=== PATIENT | female | born 1955 ===

== ENCOUNTER 2017-01-16 08:03 | Emergency (ER) | payer OTHER ==
[2017-01-16 08:07] VITALS: RESP 20; TEMP 98.5; O2SAT 96
--- NOTE | 2017-01-16 09:52 | CT ---
PROCEDURE: CT HEAD WITHOUT CONTRAST. HISTORY: headache, hemangioma to R occipital scalp COMPARISON: None available. TECHNIQUE: Axial computed tomography images were obtained through the head/brain without intravenous contrast. Radiation dose: Total exam DLP = 711 mGy-cm. This CT exam was performed using one or more of the following dose reduction techniques: Automated exposure control, adjustment of the mA and/or kV according to patient size, and/or use of iterative reconstruction technique. FINDINGS: HEMORRHAGE: No intracranial hemorrhage. BRAIN: No mass effect or edema. Scattered mild focal lucencies in the subcortical and periventricular white matter suggestive for chronic microvascular ischemic change. Punctate left basal ganglia calcification. VENTRICLES: Unremarkable. No hydrocephalus. CALVARIUM: Unremarkable. PARANASAL SINUSES: Unremarkable as visualized. No significant inflammatory changes. MASTOID AIR CELLS: Unremarkable as visualized. No inflammatory changes. OTHER FINDINGS: Focal soft tissue thickening projecting over the right posterior parietal subcutaneous soft tissues. IMPRESSION: No acute intracranial abnormality. Punctate left basal ganglia calcification. Mild chronic microvascular ischemic changes. Focal soft tissue thickening projecting over the right posterior parietal subcutaneous soft tissues. If headache persists, consider further evaluation with MRI.
--- NOTE | 2017-01-16 09:56 | C.PDOC ---
History Of Present Illness Patient is a 61 y/o female that presents to the ED for evaluation of throbbing right occipital scalp pain since yesterday morning. Patient states she has a bruise directly over the site of her pain. Daughter states that the bruise has increased in size from yesterday to today with persistent pain. Pt denies being on any blood thinner, and denies any family history of brain aneurysm. Patient is unaware of any lesion to the area. Otherwise, denies any trauma, injury, fever, chills, nausea, vomiting, or any other associated symptoms at this time. Time Seen by Provider: 01/16/17 08:12 Chief Complaint (Nursing): Headache History Per: Patient History/Exam Limitations: no limitations Onset/Duration Of Symptoms: Days (1) Current Symptoms Are (Timing): Still Present Quality: "Pain" Preceeding Symptoms: None. denies: Visual Disturbances, Known Migraine Symptoms Associated Symptoms: denies: Photophobia, Blurred Vision, Nausea, Vomiting, Extremity Weakness Recent travel outside of the [place]: No Additional History Per: Patient, Family (daughter) Past Medical History Reviewed: Historical Data, Nursing Documentation, Vital Signs Vital Signs: Last Vital Signs Temp 98.5 F 01/16/17 08:04 Pulse 64 01/16/17 09:58 Resp 20 01/16/17 09:58 BP 116/77 01/16/17 09:58 Pulse Ox 96 01/16/17 10:38 Family History: States: No Known Family Hx - Social History Hx Alcohol Use: Yes Hx Substance Use: No - Immunization History Hx Tetanus Toxoid Vaccination: No Hx Influenza Vaccination: No Hx Pneumococcal Vaccination: No Review Of Systems Except As Marked, All Systems Reviewed And Found Negative. Constitutional: Negative for: Fever, Chills Eyes: Negative for: Vision Change Gastrointestinal: Negative for: Nausea, Vomiting Skin: Positive for: Bruising (bruising to right occipital scalp with pain). Negative for: Rash Neurological: Positive for: Headache. Negative for: Weakness, Numbness, Dizziness Physical Exam - Physical Exam Appears: Well, Non-toxic, In Acute Distress (mild painful distress), Other (In mild painful distress) Skin: Normal Color, Warm, Dry, No Rash Head: Atraumatic, Normacephalic, Tenderness (tenderness to right occipital scalp with palpation), Other (quarter size of ecchymotic circular lesion to right occipital scalp) Eye(s): bilateral: Normal Inspection, PERRL, EOMI Nose: Normal Oral Mucosa: Moist Neck: Normal, Normal ROM, No Midline Cervical Tenderness, No Paracervical Tenderness, Supple Chest: Symmetrical Cardiovascular: Rhythm Regular, No Friction Rub, No Murmur Respiratory: Normal Breath Sounds, No Decreased Breath Sounds, No Accessory Muscle Use, No Rales, No Rhonchi, No Wheezing Gastrointestinal/Abdominal: Normal Exam, Soft, No Tenderness Back: Normal Inspection, No CVA Tenderness, No Vertebral Tenderness Extremity: Normal ROM, No Tenderness, No Deformity, No Swelling Extremity: Bilateral: Atraumatic, Normal ROM Neurological/Psych: Oriented x3, Normal Speech, Normal Cognition, Normal Cranial Nerves, Normal Motor, Normal Sensation, No Other (no focal deficits) Disoriented To: Person, Place, Time, Situation Gait: Steady ED Course And Treatment O2 Sat by Pulse Oximetry: 96 (on RA) Pulse Ox Interpretation: Normal - CT Scan/US CT head w/o contrast Other Rad Studies (CT/US): Read By Radiologist CT/US Interpretation: FINDINGS: HEMORRHAGE: No intracranial hemorrhage. BRAIN : No mass effect or edema. Scattered mild focal lucencies in the subcortical and periventricular white matter suggestive for chronic microvascular ischemic change. Punctate left basal ganglia calcification. VENTRICLES: Unremarkable. No hydrocephalus. CALVARIUM: Unremarkable. PARANASAL SINUSES: Unremarkable as visualized. No significant inflammatory changes. MASTOID AIR CELLS: Unremarkable as visualized. No inflammatory changes. OTHER FINDINGS: Focal soft tissue thickening projecting over the right posterior parietal subcutaneous soft tissues. IMPRESSION: No acute intracranial abnormality. Punctate left basal ganglia calcification. Mild chronic microvascular ischemic changes. Focal soft tissue thickening projecting over the right posterior parietal subcutaneous soft tissues. If headache persists, consider further evaluation with MRI. Medical Decision Making Medical Decision Makin yo F presents with pain to the R occipital scalp with a noted ecchymotic lesion on exam. Plan: - CT head - Tylenol PO On re-evaluation, pt is laying in bed comfortably, in no acute distress, with improvement of pain. Repeat neuro exam is unchanged. CT head results show no acute findings and were d/w the pt in great detail. Advised to f/u with dermatology referral provided in 2 days without fail for re-evaluation. Continue to take otc tylenol prn for pain. Advised to return to the ER at any time for any new or worsening symptoms. Disposition - Disposition Disposition: HOME/ ROUTINE Disposition Time: 09:56 Condition: STABLE Additional Instructions: Follow up with dermatology referral provided (see separate sheet) in 2 days without fail for re-evaluation. Take over the counter tylenol as needed for pain. Advised to return to the ER at any time for any new or worsening symptoms. Instructions: Acute Headache (ED) Forms: Work Excuse Print Language: GEORGIAN - Clinical Impression Clinical Impression: Headache, Hemangioma - PA / PR INTERN / Resident Statement MD/DO has reviewed & agrees with the documentation as recorded. - Scribe Statement The provider has reviewed the documentation as recorded by the Scribe Ashley Bazzi All medical record entries made by the Manuel were at my direction and personally dictated by me. I have reviewed the chart and agree that the record accurately reflects my personal performance of the history, physical exam, medical decision making, and the department course for this patient. I have also personally directed, reviewed, and agree with the discharge instructions and disposition.
[2017-01-16 09:58] VITALS: BP 116/77; PULSE 64
== END 2017-01-16 10:10 | disposition home or self-care (01) ==
LOC: C.ER 08:03
DX: D18.00 Hemangioma unspecified site (principal); R51 Headache